=== PATIENT | male | born 1970 | race Caucasian/White ===

== ENCOUNTER 2019-06-20 14:26 | Inpatient (IN) | payer MEDICAID, OTHER ==
[~2019-06-20] VITALS: Ht 188 cm; Wt 90.3 kg
[2019-06-20] MEDS ORDERED: SODIUM CHLORIDE 0.9% 1,000 ML IV ONE (14:45)
[2019-06-20] MEDS ORDERED: SUCCINYLCHOLINE CHLORIDE 20 MG/ML 10 ML VIAL ONE (14:54)
[2019-06-20] MEDS ORDERED: RAPID SEQUENCE KIT [RSI] 1 EACH KIT ONE (14:54)
[2019-06-20 15:08] LABS: BASOPHILS % (AUTO) 0.3 % (0.0-2.0); EOSINOPHILS % (AUTO) 2.7 % (1.0-6.0); HEMOGLOBIN 13.4 g/dL (13.5-17.5); LYMPHOCYTES # (AUTO) 2.2 K/uL (1.0-4.8); LYMPHOCYTES % (AUTO) 23.9 % (22.0-44.0); MEAN CORPUSCULAR HEMOGLOBIN 29.5 pg (26.0-34.0); MEAN CORPUSCULAR HGB CONC 33.6 G/dL (31.0-37.0); MEAN CORPUSCULAR VOLUME 88 fL (80-100); MONOCYTES # (AUTO) 0.9 K/uL (0.1-1.0); MONOCYTES % (AUTO) 9.3 % (2.0-9.0); NEUTROPHILS % (AUTO) 63.8 % (40.0-70.0); PLATELET COUNT (AUTO) 228 K/uL (150-450); RED BLOOD CELL COUNT(AUTO) 4.55 MIL/uL (4.50-5.90); RED CELL DISTRIBUTION WIDTH 14.1 % (11.5-14.5)
[2019-06-20 15:22] LABS: PROTHROMBIN TIME 10.1 SEC (9.4-11.6)
[2019-06-20 15:25] LABS: ANION GAP 11 mmol/L (8-16); CALCIUM, TOTAL 8.5 mg/dL (8.8-10.5); CARBON DIOXIDE 27 mmol/L (22-29); CHLORIDE 105 mmol/L (98-107); CREATININE 0.88 mg/dL (0.60-1.30); GLOMERULAR FILTR. RATE CALC > 60 mL/min (>60); GLUCOSE,RANDOM 81 mg/dL (70-110); POTASSIUM 3.5 mmol/L (3.5-5.1); SODIUM SERUM 143 mmol/L (136-145); UREA NITROGEN, BLOOD 19 mg/dL (7-18)
[2019-06-20 15:32] LABS: LACTIC ACID 1.1 mmol/L (0.4-2.0)
[2019-06-20 15:34] LABS: AMMONIA 20 umol/L (11-32)
[2019-06-20 15:49] LABS: SALICYLATE 0.4 mg/dL (2.8-20.0); TROPONIN I < 0.02 ng/mL (0.00-0.05)
[2019-06-20 15:50] LABS: ALANINE AMINOTRANSFERASE 20 U/L (12-78); ALBUMIN 3.8 g/dL (3.4-5.0); ALKALINE PHOSPHATASE 69 U/L (46-116); ASPARTATE AMINOTRANSFERASE 18 U/L (15-37); BILIRUBIN,TOTAL 0.8 mg/dL (0.1-1.0); CREATINE KINASE, TOTAL ONLY 251 U/L (39-308)
[2019-06-20 16:41] LABS: ACETAMINOPHEN < 2 mcg/mL (10-30)
[2019-06-20] MEDS ORDERED: ZOLPIDEM TARTRATE 10 MG TABLET PO PRN (22:45)
[2019-06-20] MEDS ORDERED: DIVALPROEX SODIUM 500 MG ER TABLET PO ONE (22:45)
[2019-06-20] MEDS ORDERED: LORazepam 2 MG TABLET PO PRN (22:45)
[2019-06-20] MEDS ORDERED: HALOPERIDOL 5 MG TABLET PO PRN (22:45)
[2019-06-21 02:02] VITALS: BP 119/81
[2019-06-21 08:18] LABS: CHOL/HDL RATIO 3.9 (4.2-7.3)
[2019-06-21 08:54] VITALS: BP 121/64
[2019-06-21] MEDS ORDERED: TUBERCULIN, PURIFIED PROTEIN DERIVATIVE 5 TU/0.1 ML SYRINGE ID ONE (14:15)
[2019-06-21] MEDS ORDERED: GuaiFENesin/D-METHORPHAN [SUGAR-FREE] 200-20MG/10 ML SYRUP UDCUP PO PRN (14:15)
[2019-06-21] MEDS ORDERED: HydrOXYzine PAMOATE 50 MG CAPSULE PO PRN (14:15)
[2019-06-21] MEDS ORDERED: PROMETHAZINE HCL 25 MG TABLET PO PRN (14:15)
[2019-06-21] MEDS ORDERED: QUEtiapine FUMARATE 100 MG TABLET PO PRN (14:15)
[2019-06-21] MEDS: THIAMINE HCL 100 MG TABLET PO SCH (16:29)
[2019-06-21] MEDS: GABAPENTIN 100 MG CAPSULE PO SCH (16:29)
[2019-06-21 21:15] VITALS: BP 111/59
[2019-06-22 07:52] LABS: HEMOGLOBIN A1C 5.2 % (4.5-6.2)
[2019-06-22 08:00] VITALS: BP 137/80
[2019-06-22 08:16] LABS: FREE T4 (FREE THYROXINE) 0.93 ng/dL (0.76-1.46); THYROID STIMULATING HORMONE 0.67 uIU/mL (0.36-3.74)
[2019-06-22] MEDS ORDERED: DULoxetine HCL 20 MG CAPSULE PO SCH (09:00)
[2019-06-22] MEDS: THIAMINE HCL 100 MG TABLET PO SCH ×2 (10:36→16:21)
[2019-06-22] MEDS: GABAPENTIN 100 MG CAPSULE PO SCH (10:36)
[2019-06-22] MEDS: NALTREXONE HCL 50 MG TABLET PO SCH (10:37)
[2019-06-22] MEDS: MULTIVITAMINS WITH MINERALS, THERAPEUTIC TABLET PO SCH (10:37)
[2019-06-22] MEDS: FOLIC ACID 1 MG TABLET PO SCH (10:37)
[2019-06-22] MEDS ORDERED: NALT50TA PO (13:43)
[2019-06-22] MEDS ORDERED: GABA-531 PO (13:43)
[2019-06-22] MEDS ORDERED: DULO30CA2 PO (13:43)
[2019-06-22] MEDS: GABAPENTIN 300 MG CAPSULE PO SCH (16:21)
[2019-06-22 17:07] VITALS: BP 125/61
[2019-06-23 08:30] VITALS: BP 128/57
[2019-06-23] MEDS: NALTREXONE HCL 50 MG TABLET PO SCH (09:00)
[2019-06-23] MEDS: MULTIVITAMINS WITH MINERALS, THERAPEUTIC TABLET PO SCH (09:00)
[2019-06-23] MEDS: FOLIC ACID 1 MG TABLET PO SCH (09:00)
[2019-06-23] MEDS: GABAPENTIN 300 MG CAPSULE PO SCH ×2 (09:00→12:30)
[2019-06-23] MEDS ORDERED: DULoxetine HCL 30 MG CAPSULE PO SCH (09:00)
[2019-06-23] MEDS: THIAMINE HCL 100 MG TABLET PO SCH (09:00)
[2019-06-23] MEDS ORDERED: FOLI1 PO (09:21)
[2019-06-23] MEDS ORDERED: THIA100T67 PO (09:21)
[2019-06-23] MEDS ORDERED: MULT-1239 PO (09:29)
== END 2019-06-23 13:20 | disposition home or self-care (01) | DRG 885 ==
LOC: EMS 14:28 → 3EI 22:44
PROVIDERS: ADMIT Psychiatry & Neurology Psychiatry; ATTEND Psychiatry & Neurology Psychiatry
DX: F33.2 Major depressive disorder, recurrent severe without psychotic features (principal); F17.200 Nicotine dependence, unspecified, uncomplicated; Z91.19 Patient's noncompliance with other medical treatment and regimen; G89.29 Other chronic pain; Z59.0 Homelessness; D64.9 Anemia, unspecified; M54.9 Dorsalgia, unspecified
CPT/HCPCS: 83036; 83605; 84439; 84443; 86592; 93005; 99291; G0480; G0481; J0330